=== PATIENT | female | born 1960 | race Caucasian/White ===

== ENCOUNTER 2018-08-13 11:02 | Emergency (ER) | payer BC, MEDICAID ==
[~2018-08-13] VITALS: Ht 165.1 cm; Wt 64.9 kg
[2018-08-13 11:08] VITALS: BP_SYST 131
[2018-08-13 11:30] VITALS: BP_SYST 131
== END 2018-08-13 11:30 | disposition home or self-care (01) ==
LOC: SED 11:02
DX: B37.0 Candidal stomatitis (principal); R03.0 Elevated blood-pressure reading, without diagnosis of hypertension; F17.210 Nicotine dependence, cigarettes, uncomplicated; Z71.6 Tobacco abuse counseling
CPT/HCPCS: 99283